=== PATIENT | male | born 1960 | race Two or more races ===

== ENCOUNTER 2017-09-05 09:25 | Emergency (ER) | payer SELFPAY ==
[~2017-09-05] VITALS: Ht 190.5 cm; Wt 92.2 kg
[2017-09-05 09:31] VITALS: BP 180/95
== END 2017-09-05 10:25 | disposition home or self-care (01) ==
LOC: ED 10:19
DX: Z76.0 Encounter for issue of repeat prescription (principal)
CPT/HCPCS: 99283